=== PATIENT | male | born 1945 | race Caucasian/White ===

== ENCOUNTER → 2021-11-12 | Outpatient (CLI) | payer MEDICARE ==
--- NOTE | 2021-11-13 05:26 | MR ---
EXAMINATION TYPE: MR angio head wo con DATE OF EXAM: 11/12/2021 COMPARISON: None HISTORY: CVA. MR angiographic images were obtained of the intracerebral arterial circulation. There is arterial flow in the anterior middle and posterior cerebral arteries. There is arterial flow in the vertebrobasilar artery system. No evidence of intracranial aneurysm or neovascularity. No mas s effect. No evidence of intracranial arterial stenosis. IMPRESSION: Normal MR angiography of the brain.
--- NOTE | 2021-11-13 05:26 | MR ---
EXAMINATION TYPE: MR brain wo con DATE OF EXAM: 11/12/2021 COMPARISON: CT scan of the chest pulmonary embolism protocol. History syncope. Hypoxemia. HISTORY: CVA. Multiplanar multi echo imaging of the brain performed without contrast. There is cerebral cortical atrophy. There is no mass effect or midline shift. No evidence of intracra nial hemorrhage. There is mixed signal in the left posterior temporal lobe with areas of decreased si gnal and could be hemosiderin. On the diffusion images there are small linear areas of increased sign al at the margins of the lesion. There is small areas of increased signal in the periventricular white matter on the T2 and FLAIR imag es that measure up to 4 mm. There is coalescent signal around the lateral ventricles. Brainstem is in tact. Corpus callosum is intact. Sella turcica is normal. IMPRESSION: Cerebral atrophy. 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 Also consider hemorrhagic infarct. C omparison with old exam would be helpful.
== END | disposition home or self-care (01) ==
LOC: RADMRIMAIN 12:20
PROVIDERS: ATTEND Psychiatry & Neurology Neurology
DX: G31.9 Degenerative disease of nervous system, unspecified (principal); G93.89 Other specified disorders of brain
CPT/HCPCS: 70544; 70551